=== PATIENT | female | born 1980 | race Caucasian/White ===

== ENCOUNTER 2016-11-18 11:45 | Emergency (ER) | payer OTHER ==
[~2016-11-18] VITALS: Ht 160 cm; Wt 81.6 kg
[~2016-11-18 11:45] MED LIST: APID; FLEET ENEMA; LANTUS SUBQ; MAGNESIUM HYDROXIDE; METF850T PO
[2016-11-18 11:52] VITALS: BP 125/74
[2016-11-18] MEDS ORDERED: SYMBALTA (11:58)
[2016-11-18] MEDS ORDERED: SIMV5TAB1 PO (11:58)
[2016-11-18] MEDS ORDERED: WEL100 PO (11:59)
--- NOTE | 2016-11-18 12:02 | NUR ---
Patient ambulated to bed 6. KIDNEY PULLER evaluating patient at bedside.
--- NOTE | 2016-11-18 12:05 | NUR ---
35/F presents to ED for evaluation of a laceration to right hand 5th digit. Patient states "I was washing dishes and I cut my hand on a glass cup." Pt also states "I couldn't stop the bleeding so I put a cigarette on it." No active bleeding noted at this time. Pt is AOX4, ambulatory with steady gait. VSS.
--- NOTE | 2016-11-18 12:08 | NUR ---
Patient being evaluated by Dr. Frost at bedside.
[2016-11-18] MEDS ORDERED: LIDOCAINE 1% 500 MG/50 ML VIAL INJ ONE (12:10)
[2016-11-18] MEDS ORDERED: BACITRACIN OINT 500 UNITS/GM PKT TP ONE (12:10)
[2016-11-18] MEDS ORDERED: KETOROLAC 60 MG/2 ML VIAL IM ONE (12:10)
[2016-11-18] MEDS ORDERED: NEOMYCIN/POLYMYXIN/BACITRACIN 0.9 GM/1 PKT TP ONE ×2 (12:12→12:35)
[2016-11-18] MEDS ORDERED: LIDOCAINE 1% ED 50 ML ONE (12:12)
--- NOTE | 2016-11-18 12:15 | NUR ---
ermd suturing lac.rt.pinky finger
--- NOTE | 2016-11-18 12:40 | NUR ---
lac. dressed with neosporin oint. by walter
[2016-11-18 12:50] VITALS: BP 115/71
--- NOTE | 2016-11-18 12:50 | NUR ---
Chart checked and completed. The patient's care was reviewed and supervised by Jesus Claros RN.
== END 2016-11-18 12:50 | disposition home or self-care (01) ==
LOC: MED 11:45
DX: S61.011A Laceration without foreign body of right thumb without damage to nail, initial encounter (principal); E11.9 Type 2 diabetes mellitus without complications; Z90.49 Acquired absence of other specified parts of digestive tract; F17.210 Nicotine dependence, cigarettes, uncomplicated; W45.8XXA Other foreign body or object entering through skin, initial encounter; W22.8XXA Striking against or struck by other objects, initial encounter; Y93.G1 Activity, food preparation and clean up; Y92.89 Other specified places as the place of occurrence of the external cause; Y99.8 Other external cause status
CPT/HCPCS: 12001; 90471; 90715; 96372; 99284; J1885; J2001

== ENCOUNTER 2017-02-12 06:59 | Emergency (ER) | payer OTHER ==
[~2017-02-12] VITALS: Ht 160 cm; Wt 81.6 kg
[~2017-02-12 06:59] MED LIST changes: -APID; -FLEET ENEMA; -LANTUS SUBQ; -MAGNESIUM HYDROXIDE; +SIMV5TAB1 PO; +SYMBALTA; +WEL100 PO
--- NOTE | 2017-02-12 07:13 | NUR ---
Patient ambulated to bed 5. RN evaluating patient at bedside.
--- NOTE | 2017-02-12 07:14 | NUR ---
36 YO FEMALE BIB SELF FOR LLE PAIN FOR 3 DAYS NO SWELLING REDNESS OR INJURY. DENIES N/V/D; SKIN IS PINK/WARM/DRY; AAOX4 WITH EVEN AND STEADY GAIT; LUNGS CLEAR BL; HR EVEN AND REGULAR; PT DENIES ANY FEVER, CP, SOB, OR COUGH AT THIS TIME; PATIENT STATES PAIN OF 7/10 AT THIS TIME; VSS; PATIENT POSITIONED FOR COMFORT; HOB ELEVATED; BEDRAILS UP X2; BED DOWN. ER MD MADE AWARE OF PT STATUS.
--- NOTE | 2017-02-12 07:15 | NUR ---
DR MCCARTY EVALUATING PT AT BEDSIDE.
[2017-02-12 07:18] VITALS: BP 104/65
[2017-02-12] MEDS ORDERED: KETOROLAC 60 MG/2 ML VIAL IM ONE (07:45)
--- NOTE | 2017-02-12 07:50 | NUR ---
PT STS PAIN 01/09. ADMINISTERED MED ORDER.
--- NOTE | 2017-02-12 08:20 | NUR ---
PT STS PAIN3/10
[2017-02-12 08:21] VITALS: BP 110/69
--- NOTE | 2017-02-12 08:22 | NUR ---
Patient discharged with v/s stable. Written and verbal after care instructions given and explained. Patient alert, oriented and verbalized understanding of instructions. Ambulatory with steady gait. All questions addressed prior to discharge. ID band removed. Patient advised to follow up with PMD. Rx of MEFORMIN & TYLENOL given. Patient educated on indication of medication including possible reaction and side effects. Opportunity to ask questions provided and answered.
== END 2017-02-12 08:22 | disposition home or self-care (01) ==
LOC: MED 06:59
DX: Z76.0 Encounter for issue of repeat prescription (principal); M79.605 Pain in left leg; F17.210 Nicotine dependence, cigarettes, uncomplicated; E11.9 Type 2 diabetes mellitus without complications
CPT/HCPCS: 81002; 81025; 82948; 96372; 99283; J1885

== ENCOUNTER 2017-03-06 20:57 | Emergency (ER) | payer OTHER ==
[~2017-03-06] VITALS: Ht 160 cm; Wt 81.6 kg
[2017-03-06 21:05] VITALS: BP 125/67
--- NOTE | 2017-03-06 21:20 | NUR ---
AMBULATED TO ER BED 3
[2017-03-06 21:35] VITALS: BP 125/67
--- NOTE | 2017-03-06 21:35 | NUR ---
PATIENT PRESENTS TO ED WITH C/O LEFT WRIST PAIN ,SWELLING. . PT DENIES N/V/D; SKIN IS PINK/WARM/DRY; AAOX4 WITH EVEN AND STEADY GAIT; LUNGS CLEAR BL; HR EVEN AND REGULAR; PT DENIES ANY FEVER, CP, SOB, OR COUGH AT THIS TIME; PATIENT STATES PAIN OF 4/10 AT THIS TIME; VSS; PATIENT POSITIONED FOR COMFORT; HOB ELEVATED; BEDRAILS UP X2; BED DOWN. ER MD MADE AWARE OF PT STATUS.
--- NOTE | 2017-03-06 22:15 | NUR ---
Patient discharged with v/s stable. Written and verbal after care instructions given and explained. Patient verbalized understanding. Ambulatory with steady gait. All questions addressed prior to discharge. Advised to follow up with PMD.
== END 2017-03-06 22:15 | disposition home or self-care (01) ==
LOC: MED 20:57
DX: L03.114 Cellulitis of left upper limb (principal); E11.9 Type 2 diabetes mellitus without complications; Z79.899 Other long term (current) drug therapy; Z79.84 Long term (current) use of oral hypoglycemic drugs
CPT/HCPCS: 99283

== ENCOUNTER 2017-11-21 18:54 | Emergency (ER) | payer OTHER ==
[~2017-11-21] VITALS: Ht 160 cm; Wt 88.0 kg
[2017-11-21 18:57] VITALS: BP 124/75
[2017-11-21 20:40] LABS: BASOPHILS # (AUTO) 0.1 K/uL (0.00-0.22); BASOPHILS % (AUTO) 0.6 % (0.0-2.0); EOSINOPHILS # (AUTO) 0.4 K/uL (0-0.4); EOSINOPHILS % (AUTO) 3.6 % (0.0-4.0); HEMATOCRIT 40.3 % (36-48); HEMOGLOBIN 13.6 g/dL (12.0-16.0); LYMPHOCYTES # (AUTO) 3.2 K/uL (2.5-16.5); LYMPHOCYTES % (AUTO) 27.9 % (20.5-51.1); MEAN CORPUSCULAR HEMOGLOBIN 30 pg (27-31); MEAN CORPUSCULAR HGB CONC 34 g/dL (33-37); MEAN CORPUSCULAR VOLUME 89.3 fL (80-94); MONOCYTES # (AUTO) 0.8 K/uL (0.8-1.0); MONOCYTES % (AUTO) 6.8 % (1.7-9.3); NEUTROPHILS # (AUTO) 7.1 K/uL (1.8-7.7); NEUTROPHILS % (AUTO) 61.1 % (42.2-75.2); PLATELET COUNT (AUTO) 229 K/uL (140-450); RED BLOOD CELL COUNT(AUTO) 4.51 MIL/uL (4.20-5.40); RED CELL DISTRIBUTION WIDTH 13.4 % (11.6-13.7); WHITE BLOOD COUNT (AUTO) 11.6 K/uL (4.8-10.8)
[2017-11-21 20:51] LABS: ANION GAP 11.5 (8-16); CARBON DIOXIDE 29.1 mmol/L (21-32); CREATININE 0.7 mg/dL (0.6-1.3); POTASSIUM 3.6 mmol/L (3.5-5.1)
[2017-11-21 20:59] LABS: ALBUMIN 3.7 g/dL (3.4-5.0); TOTAL BILIRUBIN 0.3 mg/dL (0.0-1.0)
[2017-11-21] MEDS: ACETAMINOPHEN EXTRA STRENGTH 500 MG TAB PO ONE (21:14)
[2017-11-21 22:51] VITALS: BP 115/60
== END 2017-11-21 22:51 | disposition home or self-care (01) ==
LOC: MED 18:54
DX: O46.91 Antepartum hemorrhage, unspecified, first trimester (principal); E11.9 Type 2 diabetes mellitus without complications; E07.9 Disorder of thyroid, unspecified; Z3A.08 8 weeks gestation of pregnancy; Z79.899 Other long term (current) drug therapy; Z79.84 Long term (current) use of oral hypoglycemic drugs
CPT/HCPCS: 36415; 76801; 80053; 81002; 81025; 82948; 84702; 85025; 86900; 86901; 99285; Q0092

== ENCOUNTER 2018-05-28 15:59 | Emergency (ER) | payer OTHER ==
[~2018-05-28] VITALS: Ht 162.6 cm; Wt 79.4 kg
[~2018-05-28 15:59] MED LIST changes: -SIMV5TAB1 PO; +SIMV5TAB83 PO
[2018-05-28 16:02] VITALS: BP 103/67
--- NOTE | 2018-05-28 16:24 | NUR ---
37/ F BIB FAMILY. PATIENT HAD SURGERY 05/14/18 TUMMY TUCK AND BREAST REDUCTION. PATIENT C/O PAIN 10/10 IN RIGHT BREAST AND DRAIN CONNECTED TO TUMMY TUCK 10/. PAIN IS CONTANT AND DULL. PATIENT REPORTS LEAKAGE FROM BREAST. FOR 5 DAYS AND PAIN FOR 4 DAYS. FEVER FOR 4 DAYS WITH CHILLS. DISCHARGE COMING FROM TUMMY TUCK DRAIN. BOTH BREAST ARE BRUISED, RIGHT BREAST IS RED AND INFLAMMED.PATIENT POSITIONED FOR COMFORT; HOB ELEVATED; BEDRAILS UP X2; BED DOWN. ER MD MADE AWARE OF PT STATUS.
--- NOTE | 2018-05-28 16:35 | NUR ---
Patient being evaluated by at bedside.
[2018-05-28] MEDS ORDERED: MORPHINE SULFATE 4 MG/ML SYR IM ONE (16:40)
[2018-05-28] MEDS ORDERED: ONDANSETRON 4 MG ODT PO ONE (16:40)
[2018-05-28 16:56] VITALS: BP 141/79
--- NOTE | 2018-05-28 16:56 | NUR ---
Patient discharged with v/s stable. Written and verbal after care instructions given and explained. Patient alert, oriented and verbalized understanding of instructions. Ambulatory with steady gait. All questions addressed prior to discharge. ID band removed. Patient advised to follow up with PMD. Rx of NORCO, ZOFRAN, KEFLEX, AND BACTRIM. given. Patient educated on indication of medication including possible reaction and side effects. Opportunity to ask questions provided and answered.
== END 2018-05-28 16:56 | disposition home or self-care (01) ==
LOC: MED 15:59
DX: N61.0 Mastitis without abscess (principal); E11.9 Type 2 diabetes mellitus without complications; E07.9 Disorder of thyroid, unspecified; F17.200 Nicotine dependence, unspecified, uncomplicated; Z90.49 Acquired absence of other specified parts of digestive tract; Z79.84 Long term (current) use of oral hypoglycemic drugs; Z79.899 Other long term (current) drug therapy
CPT/HCPCS: 81002; 81025; 96372; 99283; J2270; Q0162

== ENCOUNTER 2022-04-05 00:55 | Emergency (ER) | payer OTHER ==
[~2022-04-05] VITALS: Ht 162.6 cm; Wt 80.5 kg
[~2022-04-05 00:55] MED LIST changes: +BUPR-51 PO; +METF-713 PO; -METF850T PO; +SIMV5TAB55 PO; -SIMV5TAB83 PO; -WEL100 PO
[2022-04-05 01:16] VITALS: BP 130/91
--- NOTE | 2022-04-05 01:20 | NUR ---
PT TO LOBBY WAITING FOR BED
--- NOTE | 2022-04-05 02:45 | NUR ---
ERMD ASSESSING IN [place]
--- NOTE | 2022-04-05 02:50 | NUR ---
LAB AT CHAIR SIDE.
--- NOTE | 2022-04-05 02:58 | NUR ---
URINE COLLECTED AND HANDED TO LAB
--- NOTE | 2022-04-05 03:03 | NUR ---
IV TO LEFT AC 20G ESTABLISHED. BLOOD COLLECTED AND GIVEN TO ZACHARY FROM LAB.
[2022-04-05] MEDS ORDERED: KETOROLAC 30 MG/ML VIAL IVP ONE (03:05)
[2022-04-05 03:10] LABS: BASOPHILS # (AUTO) 0.1 K/uL (0.00-0.22); BASOPHILS % (AUTO) 0.6 % (0.0-2.0); EOSINOPHILS # (AUTO) 0.3 K/uL (0-0.4); EOSINOPHILS % (AUTO) 2.9 % (0.0-4.0); HEMATOCRIT 44.8 % (36-48); HEMOGLOBIN 15.1 g/dL (12.0-16.0); LYMPHOCYTES # (AUTO) 2.7 K/uL (2.5-16.5); LYMPHOCYTES % (AUTO) 23.4 % (20.5-51.1); MEAN CORPUSCULAR HEMOGLOBIN 30 pg (27-31); MEAN CORPUSCULAR HGB CONC 34 g/dL (33-37); MEAN CORPUSCULAR VOLUME 88.6 fL (80-94); MONOCYTES # (AUTO) 0.7 K/uL (0.8-1.0); MONOCYTES % (AUTO) 6.1 % (1.7-9.3); NEUTROPHILS # (AUTO) 7.9 K/uL (1.8-7.7); PLATELET COUNT (AUTO) 318 K/uL (140-450); RED BLOOD CELL COUNT(AUTO) 5.06 MIL/uL (4.20-5.40); RED CELL DISTRIBUTION WIDTH 13.4 % (11.6-13.7); WHITE BLOOD COUNT (AUTO) 11.7 K/uL (4.8-10.8)
[2022-04-05 03:11] LABS: APPEARANCE,URINE CLEAR (CLEAR); BILIRUBIN,URINE NEGATIVE (NEGATIVE); BLOOD, URINE TRACE-I (NEGATIVE); COLOR,URINE YELLOW (YELLOW); LEUKOCYTE ESTERASE ,URINE NEGATIVE (NEGATIVE); NITRITE, URINE NEGATIVE (NEGATIVE); UGLUCOSE 3+ (NEGATIVE)
[2022-04-05] MEDS ORDERED: cefTRIAXone 1,000 MG VIAL ONE (03:18)
--- NOTE | 2022-04-05 03:29 | NUR ---
PT TAKEN TO BED 3
[2022-04-05 03:36] LABS: ALBUMIN 3.4 g/dL (3.4-5.0); ANION GAP 13.3 (8-16); CARBON DIOXIDE 27.9 mmol/L (21-32); CREATININE 0.7 mg/dL (0.6-1.3); POTASSIUM 3.2 mmol/L (3.5-5.1); TOTAL BILIRUBIN 0.3 mg/dL (0.0-1.0)
[2022-04-05 03:42] LABS: RBC,URINE 0-5 /HPF (0-5); WBC,URINE 0-5 /HPF (0-5)
[2022-04-05] MEDS ORDERED: CIPR500T9 PO (05:08)
[2022-04-05] MEDS ORDERED: NAPR-54 PO (05:09)
[2022-04-05 05:15] VITALS: BP 130/91
== END 2022-04-05 05:10 | disposition home or self-care (01) ==
LOC: MED 00:55
DX: N39.0 Urinary tract infection, site not specified (principal); R10.30 Lower abdominal pain, unspecified; R11.0 Nausea; F17.210 Nicotine dependence, cigarettes, uncomplicated; E11.9 Type 2 diabetes mellitus without complications; I10 Essential (primary) hypertension; E07.9 Disorder of thyroid, unspecified; Z90.49 Acquired absence of other specified parts of digestive tract; Z79.899 Other long term (current) drug therapy; Z79.84 Long term (current) use of oral hypoglycemic drugs; Z71.6 Tobacco abuse counseling
CPT/HCPCS: 36415; 80053; 81001; 81025; 83605; 85025; 87040; 87086; 96365; 96375; 99284; J0696; J1885

== ENCOUNTER 2022-08-09 20:32 | Emergency (ER) | payer OTHER ==
[~2022-08-09] VITALS: Ht 160 cm; Wt 79.8 kg
[~2022-08-09 20:32] MED LIST changes: +CIPR500T9 PO; +NAPR-54 PO
[2022-08-09 20:54] VITALS: BP 134/89
--- NOTE | 2022-08-09 21:22 | NUR ---
pt is here to get evaluation for epigastric pain radiate to flank area, she said pain is 10/10. She is awake and alert x 4. room air and ambulatory.
--- NOTE | 2022-08-09 22:15 | NUR ---
Dr. Sequeira examining patient.
[2022-08-09] MEDS ORDERED: MORPHINE SULFATE 4 MG/ML SYR IVP ONE (22:20)
[2022-08-09] MEDS ORDERED: NACL 0.9% 1,000 ML IV ONE (22:20)
[2022-08-09] MEDS ORDERED: ONDANSETRON 4 MG/2 ML VIAL IVP ONE (22:20)
[2022-08-09 22:46] LABS: BASOPHILS # (AUTO) 0.1 K/uL (0.00-0.22); BASOPHILS % (AUTO) 0.8 % (0.0-2.0); EOSINOPHILS # (AUTO) 0.3 K/uL (0-0.4); EOSINOPHILS % (AUTO) 2.7 % (0.0-4.0); HEMATOCRIT 46.9 % (36-48); HEMOGLOBIN 15.9 g/dL (12.0-16.0); LYMPHOCYTES # (AUTO) 3.3 K/uL (2.5-16.5); LYMPHOCYTES % (AUTO) 29.6 % (20.5-51.1); MEAN CORPUSCULAR HEMOGLOBIN 30 pg (27-31); MEAN CORPUSCULAR HGB CONC 34 g/dL (33-37); MEAN CORPUSCULAR VOLUME 87.5 fL (80-94); MONOCYTES # (AUTO) 0.6 K/uL (0.8-1.0); MONOCYTES % (AUTO) 5.5 % (1.7-9.3); NEUTROPHILS # (AUTO) 6.7 K/uL (1.8-7.7); NEUTROPHILS % (AUTO) 61.4 % (42.2-75.2); PLATELET COUNT (AUTO) 281 K/uL (140-450); RED BLOOD CELL COUNT(AUTO) 5.36 MIL/uL (4.20-5.40); RED CELL DISTRIBUTION WIDTH 13.3 % (11.6-13.7)
[2022-08-09 23:11] LABS: ALBUMIN 3.9 g/dL (3.4-5.0); ANION GAP 13.8 (8-16); CARBON DIOXIDE 24.4 mmol/L (21-32); POTASSIUM 3.2 mmol/L (3.5-5.1); TOTAL BILIRUBIN 0.3 mg/dL (0.0-1.0)
[2022-08-09 23:12] LABS: APPEARANCE,URINE CLEAR (CLEAR); BILIRUBIN,URINE NEGATIVE (NEGATIVE); BLOOD, URINE TRACE-I (NEGATIVE); COLOR,URINE YELLOW (YELLOW); LEUKOCYTE ESTERASE ,URINE NEGATIVE (NEGATIVE); NITRITE, URINE NEGATIVE (NEGATIVE); PH,URINE 5.5 (5.0-9.0); UGLUCOSE >=1000 (NEGATIVE)
[2022-08-09 23:18] LABS: RBC,URINE 0-5 /HPF (0-5)
[2022-08-10] MEDS ORDERED: FAMO-90 PO (00:41)
[2022-08-10] MEDS ORDERED: CEPH-588 PO (00:41)
[2022-08-10 01:03] VITALS: BP 134/89
--- NOTE | 2022-08-10 01:04 | NUR ---
Patient discharged with v/s stable. Written and verbal after care instructions given and explained. Patient verbalized understanding. Ambulatory with steady gait. All questions addressed prior to discharge. Advised to follow up with PMD. pt left with her belonging
== END 2022-08-10 01:03 | disposition home or self-care (01) ==
LOC: MED 20:32
DX: N39.0 Urinary tract infection, site not specified (principal); K29.70 Gastritis, unspecified, without bleeding; N83.202 Unspecified ovarian cyst, left side; K76.0 Fatty (change of) liver, not elsewhere classified; E11.9 Type 2 diabetes mellitus without complications; I10 Essential (primary) hypertension; E07.9 Disorder of thyroid, unspecified; F17.200 Nicotine dependence, unspecified, uncomplicated; Z79.84 Long term (current) use of oral hypoglycemic drugs; Z79.899 Other long term (current) drug therapy; Z90.49 Acquired absence of other specified parts of digestive tract; Z98.890 Other specified postprocedural states
CPT/HCPCS: 36415; 74177; 80053; 81001; 81025; 83690; 85025; 87086; 96361; 96374; 96375; 99285; J2270; J2405; Q9967

== ENCOUNTER 2023-05-09 23:25 | Emergency (ER) | payer OTHER ==
[~2023-05-09] VITALS: Ht 162.6 cm; Wt 81.6 kg
[~2023-05-09 23:25] MED LIST changes: +CEPH-588 PO; +FAMO-90 PO
[2023-05-09 23:30] VITALS: BP 135/90; PULSE 114; RESP 18; TEMP 98.2; O2SAT 99
[2023-05-10 00:45] LABS: BASOPHILS # (AUTO) 0.1 K/uL (0.00-0.22); BASOPHILS % (AUTO) 0.7 % (0.0-2.0); EOSINOPHILS # (AUTO) 0.3 K/uL (0-0.4); EOSINOPHILS % (AUTO) 2.8 % (0.0-4.0); LYMPHOCYTES # (AUTO) 2.6 K/uL (2.5-16.5); LYMPHOCYTES % (AUTO) 25.4 % (20.5-51.1); MEAN CORPUSCULAR HEMOGLOBIN 29 pg (27-31); MEAN CORPUSCULAR HGB CONC 33 g/dL (33-37); MEAN CORPUSCULAR VOLUME 88.9 fL (80-94); MONOCYTES # (AUTO) 0.8 K/uL (0.8-1.0); MONOCYTES % (AUTO) 7.7 % (1.7-9.3); NEUTROPHILS # (AUTO) 6.4 K/uL (1.8-7.7); NEUTROPHILS % (AUTO) 63.4 % (42.2-75.2); PLATELET COUNT (AUTO) 231 K/uL (140-450); RED BLOOD CELL COUNT(AUTO) 4.83 MIL/uL (4.20-5.40); RED CELL DISTRIBUTION WIDTH 13.2 % (11.6-13.7); WHITE BLOOD COUNT (AUTO) 10.1 K/uL (4.8-10.8)
[2023-05-10 01:01] LABS: ALBUMIN 3.1 g/dL (3.4-5.0); CALCIUM 8.7 mg/dL (8.5-10.1); CARBON DIOXIDE 26.3 mmol/L (21-32); CREATININE 0.7 mg/dL (0.6-1.3); POTASSIUM 3.3 mmol/L (3.5-5.1); TOTAL BILIRUBIN 0.3 mg/dL (0.0-1.0); TOTAL PROTEIN, SERUM 7.1 g/dL (6.4-8.2)
[2023-05-10 01:36] VITALS: O2SAT 99
[2023-05-10 01:42] LABS: APPEARANCE,URINE CLOUDY (CLEAR); BILIRUBIN,URINE NEGATIVE (NEGATIVE); BLOOD, URINE TRACE-I (NEGATIVE); COLOR,URINE YELLOW (YELLOW); LEUKOCYTE ESTERASE ,URINE NEGATIVE (NEGATIVE); NITRITE, URINE NEGATIVE (NEGATIVE); PH,URINE 5.5 (5.0-9.0); PROTEIN,URINE 1+ (NEGATIVE); UGLUCOSE 3+ (NEGATIVE); UROBILINOGEN,URINE 0.2 EU/dL (0.2 - 1)
[2023-05-10 01:47] LABS: BACTERIA,URINE >30 (MANY) /HPF (None Seen)
[2023-05-10] MEDS ORDERED: MORPHINE SULFATE 4 MG/ML SYR ONE (01:58)
[2023-05-10] MEDS ORDERED: MORPHINE SULFATE 4 MG/ML SYR IM ONE (02:00)
[2023-05-10] MEDS ORDERED: NAPR-54 PO (05:45)
[2023-05-10] MEDS ORDERED: CEPH-588 PO (05:45)
== END 2023-05-10 05:51 | disposition home or self-care (01) ==
LOC: MED 23:25
DX: N39.0 Urinary tract infection, site not specified (principal); E11.9 Type 2 diabetes mellitus without complications; I10 Essential (primary) hypertension; F17.210 Nicotine dependence, cigarettes, uncomplicated; Z71.6 Tobacco abuse counseling; Z90.49 Acquired absence of other specified parts of digestive tract; Z86.39 Personal history of other endocrine, nutritional and metabolic disease; Z79.899 Other long term (current) drug therapy; Z79.2 Long term (current) use of antibiotics; Z79.1 Long term (current) use of non-steroidal anti-inflammatories (NSAID)
CPT/HCPCS: 36415; 74176; 80053; 81001; 81025; 83690; 85025; 87086; 96372; 99285; J2270

== ENCOUNTER 2023-09-28 20:16 | Emergency (ER) | payer OTHER ==
[~2023-09-28] VITALS: Ht 162.6 cm; Wt 77.1 kg
[2023-09-28 20:19] VITALS: BP 121/100; PULSE 118; RESP 16; TEMP 97.1; O2SAT 100
[2023-09-28] MEDS ORDERED: ASPIRIN 325 MG TAB PO ONE (20:50)
[2023-09-28] MEDS: NACL 0.9% 1,000 ML IV SCH (21:00)
[2023-09-28] MEDS: KETOROLAC 30 MG/ML VIAL IM ONE (21:10)
[2023-09-28 21:39] LABS: BASOPHILS # (AUTO) 0.1 K/uL (0.00-0.22); BASOPHILS % (AUTO) 0.7 % (0.0-2.0); EOSINOPHILS # (AUTO) 0.2 K/uL (0-0.4); EOSINOPHILS % (AUTO) 1.7 % (0.0-4.0); HEMATOCRIT 46.2 % (36-48); HEMOGLOBIN 15.8 g/dL (12.0-16.0); LYMPHOCYTES # (AUTO) 2.3 K/uL (2.5-16.5); LYMPHOCYTES % (AUTO) 21.1 % (20.5-51.1); MEAN CORPUSCULAR HEMOGLOBIN 30 pg (27-31); MEAN CORPUSCULAR HGB CONC 34 g/dL (33-37); MEAN CORPUSCULAR VOLUME 86.5 fL (80-94); MONOCYTES # (AUTO) 0.8 K/uL (0.8-1.0); MONOCYTES % (AUTO) 7.8 % (1.7-9.3); NEUTROPHILS # (AUTO) 7.5 K/uL (1.8-7.7); NEUTROPHILS % (AUTO) 68.7 % (42.2-75.2); PLATELET COUNT (AUTO) 238 K/uL (140-450); RED BLOOD CELL COUNT(AUTO) 5.34 MIL/uL (4.20-5.40); RED CELL DISTRIBUTION WIDTH 14.6 % (11.6-13.7); WHITE BLOOD COUNT (AUTO) 10.9 K/uL (4.8-10.8)
[2023-09-28 21:47] LABS: ANION GAP 11.9 (8-16); CALCIUM 9.2 mg/dL (8.5-10.1); CARBON DIOXIDE 27.7 mmol/L (21-32); CREATININE 0.8 mg/dL (0.6-1.3); POTASSIUM 3.6 mmol/L (3.5-5.1)
[2023-09-28 21:52] LABS: BILIRUBIN,URINE NEGATIVE (NEGATIVE); BLOOD, URINE 1+ (NEGATIVE); COLOR,URINE YELLOW (YELLOW); LEUKOCYTE ESTERASE ,URINE NEGATIVE (NEGATIVE); NITRITE, URINE NEGATIVE (NEGATIVE); PROTEIN,URINE 2+ (NEGATIVE); UGLUCOSE 3+ (NEGATIVE); UROBILINOGEN,URINE 0.2 EU/dL (0.2 - 1)
[2023-09-28 21:58] LABS: APPEARANCE,URINE SLIGHTLY CLOUDY (CLEAR)
[2023-09-28 22:00] LABS: BACTERIA,URINE 1+ /HPF (None Seen); MUCUS,URINE None Seen /LPF (None Seen); RBC,URINE 0-5 /HPF (0-5); SQUAMOUS EPITHELIAL CELL,UR 0-3 (FEW) /LPF (0-3 (FEW)); WBC,URINE 0-5 /HPF (0-5)
[2023-09-28 22:01] LABS: ALBUMIN 3.3 g/dL (3.4-5.0); BILIRUBIN,DIRECT 0.1 mg/dL (0.0-0.3); TOTAL BILIRUBIN 0.4 mg/dL (0.0-1.0); TOTAL PROTEIN, SERUM 7.8 g/dL (6.4-8.2)
[2023-09-28] MEDS ORDERED: ACET-503 PO (22:28)
[2023-09-28] MEDS ORDERED: IBUP-2213 PO (22:28)
[2023-09-28 22:36] VITALS: BP 127/98; PULSE 102; RESP 16; TEMP 98; O2SAT 100
== END 2023-09-28 22:36 | disposition home or self-care (01) ==
LOC: MED 20:16
DX: M54.50 Low back pain, unspecified (principal); E11.9 Type 2 diabetes mellitus without complications; I10 Essential (primary) hypertension; F17.200 Nicotine dependence, unspecified, uncomplicated; Z86.39 Personal history of other endocrine, nutritional and metabolic disease; Z90.49 Acquired absence of other specified parts of digestive tract; Z98.890 Other specified postprocedural states; Z79.899 Other long term (current) drug therapy
CPT/HCPCS: 36415; 80048; 80076; 81001; 81025; 82948; 83690; 85025; 96360; 96372; 99283; J1885; J7030